=== PATIENT | female | born 1980 | race Caucasian/White ===

== ENCOUNTER 2016-06-18 11:56 | Emergency (ER) | payer MEDICAID ==
--- NOTE | 2016-06-18 12:03 | ER Document Report ---
ED Medical Screen (RME) - General Stated Complaint: SWOLLEN FINGER Time seen by provider: 12:02 Mode of Arrival: Ambulatory Information source: Patient Notes: 36-year-old female presents to ED for swelling and pain in her right index finger. She was painting yesterday and ran her finger over a wall that had metal shards and at she removed some from her from her index finger but is not sure if there is others in her finger still. I have greeted and performed a rapid initial assessment of this patient. A comprehensive ED assessment and evaluation of the patient, analysis of test results and completion of medical decision making process will be conducted by an additional ED providers. TRAVEL OUTSIDE OF THE [place] IN LAST 30 DAYS: No - Related Data Allergies/Adverse Reactions: codeine [Codeine] Allergy (Severe, Verified 10/11/13 17:09) rash Penicillins Allergy (Severe, Verified 10/11/13 17:09) rash Past Medical History - Social History Family history: Arthritis, CAD, CVA, DM, Hypertension - Past Medical History Cardiac Medical History: Reports: Hx Hypertension Skin Medical History: Reports Hx Cellulitis, Reports Hx MRSA Psychiatric Medical History: Reports: Hx Depression Infectious Medical History: Reports: Hx MRSA Past Surgical History: Reports: Hx Section, Hx Tubal Ligation - Immunizations Immunizations up to date: Yes Hx Diphtheria, Pertussis, Tetanus Vaccination: Yes Physical Exam - Vital signs Vitals: Temp Pulse Resp BP Pulse Ox 98.2 F 81 16 138/94 H 98 06/18/16 12:00 06/18/16 12:00 06/18/16 12:00 06/18/16 12:00 06/18/16 12:00 Course - Vital Signs Vital signs: Temp Pulse Resp BP Pulse Ox 98.2 F 81 16 138/94 H 98 06/18/16 12:00 06/18/16 12:00 06/18/16 12:00 06/18/16 12:00 06/18/16 12:00
[2016-06-18] MEDS ORDERED: SULFAMETHOXAZOLE/TRIMETHOPRIM 800-160 MG TABLET PO ONE (12:26)
[2016-06-18] MEDS ORDERED: CEPHALEXIN 500 MG CAPSULE PO ONE (12:28)
--- NOTE | 2016-06-18 12:34 | ER Document Report ---
ED General - General Chief Complaint: Finger Injury Stated Complaint: SWOLLEN FINGER Mode of Arrival: Ambulatory Notes: 28-year-old female here with complaints of pain redness and swelling to the right second finger that started yesterday morning. She states that she was recently renovating a house and ran her hand across the surface that had some metal shavings on it. She is unsure if she has a piece of metal stuck in her finger. She has tried ibuprofen with some minimal relief. She has also tried soaking the finger in Epsom salt water. She denies any nausea vomiting fevers chills. She has a history of MRSA diagnosed 2 years ago. She has not had any drainage from the finger. TRAVEL OUTSIDE OF THE [place] IN LAST 30 DAYS: No - Related Data Allergies/Adverse Reactions: codeine [Codeine] Allergy (Severe, Verified 06/18/16 12:10) rash Penicillins Allergy (Severe, Verified 06/18/16 12:10) rash Past Medical History - General Information source: Patient - Social History Smoking Status: Never Smoker Chew tobacco use (# tins/day): No Frequency of alcohol use: None Drug Abuse: None Family History: CAD, DM, Hypertension, Malignancy Patient has suicidal ideation: No Patient has homicidal ideation: No - Past Medical History Cardiac Medical History: Reports: Hx Hypertension Renal/ Medical History: Denies: Hx Peritoneal Dialysis Skin Medical History: Reports Hx Cellulitis, Reports Hx MRSA Psychiatric Medical History: Reports: Hx Depression Infectious Medical History: Reports: Hx MRSA Past Surgical History: Reports: Hx Section, Hx Tubal Ligation - Immunizations Immunizations up to date: Yes Hx Diphtheria, Pertussis, Tetanus Vaccination: Yes Review of Systems - Review of Systems Notes: See history of present illness for pertinent positive review of systems; otherwise all review of systems have been reviewed and are negative Physical Exam - Vital signs Vitals: Temp Pulse Resp BP Pulse Ox 98.2 F 81 16 138/94 H 98 06/18/16 12:00 06/18/16 12:00 06/18/16 12:00 06/18/16 12:00 06/18/16 12:00 - Notes Notes: PHYSICAL EXAMINATION: GENERAL: Well-appearing and in no acute distress. HEAD: Atraumatic, normocephalic. EYES: Pupils equal round and reactive to light, extraocular movements intact, sclera anicteric, conjunctiva are normal. ENT: nares patent, oropharynx clear without exudates. Moist mucous membranes. NECK: Normal range of motion, supple without lymphadenopathy LUNGS: CTAB and equal. No wheezes rales or rhonchi. HEART: Regular rate and rhythm without murmurs ABDOMEN: Soft, no tenderness. No guarding, no rebound EXTREMITIES: Normal range of motion, no pitting edema. No cyanosis. Right second finger with some mild erythema distally with no significant induration fluctuance drainage visualized or palpated. There is a small 2 mm dark lesion seen at the distal lateral surface of the finger but does not appear to be a foreign body. Neurovascular intact. NEUROLOGICAL: Cranial nerves grossly intact. Normal sensory/motor exams. PSYCH: Normal mood, normal affect. SKIN: Warm, Dry, normal turgor, no rashes or lesions noted Course - Re-evaluation Re-evalutation: 06/18/16 12:33 MEDICAL DECISION MAKING: Concern for cellulitis versus abscess versus foreign body Will obtain x-ray to rule out foreign body Patient does not know of any severe allergy to cephalosporin Per chart review, She had Keflex December 2012 She is agreeable to take Keflex here and we will observe her for any allergies X-rays pending at this time Patient understands and agrees to the plan of care 06/18/16 13:27 Pt has not developed any adverse reactions to Keflex We'll discharge home with Bactrim and Keflex mobic - Vital Signs Vital signs: Temp Pulse Resp BP Pulse Ox 98.2 F 81 16 138/94 H 98 06/18/16 12:00 06/18/16 12:00 06/18/16 12:00 06/18/16 12:00 06/18/16 12:00 Discharge - Discharge Clinical Impression: Cellulitis, finger Qualifiers: Laterality: right Qualified Code(s): L03.011 - Cellulitis of right finger Condition: Good Disposition: HOME, SELF-CARE Additional Instructions: You were seen in the emergency department at [facility]. Please finish the antibiotics and do not skip any doses. You were also prescribed medication for pain to use as needed. Please followup with your primary physician or the orthopedic doctor in the next few days for further management/ evaluation. Please return to the emergency department for worsening of symptoms or any symptom that you deem to be concerning or life-threatening. Thank you for allowing us to be part of your care. Prescriptions: Cephalexin Monohydrate [Keflex 500 mg Capsule] 500 mg PO BID #20 capsule Meloxicam 15 mg PO DAILYP PRN #10 tablet PRN Reason: Sulfamethoxazole/Trimethoprim [Bactrim Ds Tablet] 1 each PO BID #20 tablet Referrals: ANTONY WAGNER MD [ACTIVE STAFF] - Follow up as needed
[2016-06-18 13:35] VITALS: BP 135/90
== END 2016-06-18 13:35 | disposition home or self-care (01) ==
LOC: ER 11:56
DX: L03.011 Cellulitis of right finger (principal); S69.91XA Unspecified injury of right wrist, hand and finger(s), initial encounter; X58.XXXA Exposure to other specified factors, initial encounter
CPT/HCPCS: 99283; 73140; J3490

== ENCOUNTER 2017-07-13 05:49 | Emergency (ER) | payer SELFPAY ==
[2017-07-13] MEDS ORDERED: ONDANSETRON HCL 8 MG TABLET PO ONE (07:06)
[2017-07-13] MEDS ORDERED: KETOROLAC TROMETHAMINE 60 MG/2 ML SDV IM ONE (07:08)
[2017-07-13 07:43] LABS: APPEARANCE,URINE SLIGHTLY-CLOUDY; BILIRUBIN,URINE NEGATIVE (NEGATIVE); COLOR,URINE YELLOW; GLUCOSE, URINE NEGATIVE (NEGATIVE); KETONES,URINE 20 mg/dL (NEGATIVE); LEUKOCYTE ESTERASE,URINE SMALL (NEGATIVE); NITRITE,URINE NEGATIVE (NEGATIVE); PROTEIN,URINE 100 mg/dL (NEGATIVE); URIC ACID CRYSTALS,URINE FEW /HPF; URINE SPECIFIC GRAVITY 1.014
[2017-07-13] MEDS ORDERED: SULFAMETHOXAZOLE/TRIMETHOPRIM 800-160 MG TABLET PO ONE (08:15)
--- NOTE | 2017-07-13 08:18 | ER Document Report ---
ED General - General Chief Complaint: Fever Stated Complaint: SORE THROAT Time Seen by Provider: 07/13/17 06:56 TRAVEL OUTSIDE OF THE [place] IN LAST 30 DAYS: No - HPI Patient complains to provider of: Fever sore throat urinary symptoms Notes: Patient coming in for the above-stated symptoms ongoing for the last 24 hours. Patient also states some slight nausea vomiting. Denies any sick contacts denies any recent antibiotics. Patient resting company upon my evaluation. - Related Data Allergies/Adverse Reactions: codeine [Codeine] Allergy (Severe, Verified 07/13/17 07:25) rash Penicillins Allergy (Severe, Verified 07/13/17 07:25) rash Past Medical History - Social History Smoking Status: Current Some Day Smoker Chew tobacco use (# tins/day): No Frequency of alcohol use: Occasional Drug Abuse: None Family History: CAD, DM, Hypertension, Malignancy Patient has suicidal ideation: No Patient has homicidal ideation: No - Past Medical History Cardiac Medical History: Reports: Hx Hypertension Renal/ Medical History: Denies: Hx Peritoneal Dialysis Skin Medical History: Reports Hx Cellulitis, Reports Hx MRSA Psychiatric Medical History: Reports: Hx Depression Infectious Medical History: Reports: Hx MRSA Past Surgical History: Reports: Hx Section, Hx Tubal Ligation - Immunizations Immunizations up to date: Yes Hx Diphtheria, Pertussis, Tetanus Vaccination: Yes Review of Systems - Review of Systems Constitutional: Fever EENT: Throat pain Cardiovascular: No symptoms reported Respiratory: No symptoms reported Gastrointestinal: No symptoms reported Genitourinary: Dysuria Female Genitourinary: No symptoms reported Musculoskeletal: No symptoms reported Skin: No symptoms reported Hematologic/Lymphatic: No symptoms reported Neurological/Psychological: No symptoms reported -: Yes All other systems reviewed and negative Physical Exam - Vital signs Vitals: Temp Pulse Resp BP Pulse Ox 100.7 F H 92 19 136/74 H 99 07/13/17 05:50 07/13/17 05:50 07/13/17 05:50 07/13/17 05:50 07/13/17 05:50 Interpretation: Normal - General General appearance: Appears well, Alert - HEENT Head: Normocephalic, Atraumatic Eyes: Normal Conjunctiva: Normal Cornea: Normal Extraocular movements intact: Yes Eyelashes: Normal Pupils: PERRL Ears: Normal External canal: Normal Tympanic membrane: Normal Sinus: Normal Nasal: Normal Pharynx: Normal Neck: Normal - Respiratory Respiratory status: No respiratory distress Chest status: Nontender Breath sounds: Normal Chest palpation: Normal - Cardiovascular Rhythm: Regular Heart sounds: Normal auscultation Murmur: No - Abdominal Inspection: Normal Distension: No distension Bowel sounds: Normal Tenderness: Nontender Organomegaly: No organomegaly - Back Back: Normal, Nontender - Extremities General upper extremity: Normal inspection, Nontender, Normal color, Normal ROM , Normal temperature General lower extremity: Normal inspection, Nontender, Normal color, Normal ROM , Normal temperature, Normal weight bearing. No: Yara's sign - Neurological Neuro grossly intact: Yes Cognition: Normal Orientation: AAOx4 [place] Coma Scale Eye Opening: Spontaneous [place] Coma Scale Verbal: Oriented [place] Coma Scale Motor: Obeys Commands Sara Coma Scale Total: 15 Speech: Normal Motor strength normal: LUE, RUE, LLE, RLE Sensory: Normal - Psychological Associated symptoms: Normal affect, Normal mood - Skin Skin Temperature: Warm Skin Moisture: Dry Skin Color: Normal Course - Re-evaluation Re-evalutation: 07/14/17 12:18 Laboratory studies show signs of urinary tract infection. Will give medication history infection nausea medication patient is to follow-up with primary care physician. - Vital Signs Vital signs: Temp Pulse Resp BP Pulse Ox 100.7 F H 92 20 124/69 96 07/13/17 05:50 07/13/17 08:45 07/13/17 08:45 07/13/17 08:45 07/13/17 08:45 - Laboratory Laboratory results interpreted by me: 07/13/17 07:02 Urine Protein 100 H Urine Ketones 20 H Urine Blood LARGE H Urine Urobilinogen 2.0 H Ur Leukocyte Esterase SMALL H Discharge - Discharge Clinical Impression: UTI (urinary tract infection) Qualifiers: Urinary tract infection type: site unspecified Hematuria presence: without hematuria Qualified Code(s): N39.0 - Urinary tract infection, site not specified Nausea & vomiting Qualifiers: Vomiting type: unspecified Vomiting Intractability: unspecified Qualified Code( s): R11.2 - Nausea with vomiting, unspecified Condition: Good Disposition: HOME, SELF-CARE Instructions: Trimethoprim-Sulfa ([facility]), Urinary Tract Infection ([facility]) Additional Instructions: Follow-up with your primary care physician. Your laboratory studies today do show signs of urinary tract infection. Please take medication as prescribed. Please take nausea medication as prescribed as well. Prescriptions: Ondansetron [Zofran Odt 4 mg Tablet] 4 mg PO Q4HP PRN #30 tab.rapdis PRN Reason: Promethazine HCl [Phenergan 25 mg Tablet] 25 mg PO Q6 #30 tablet Sulfamethoxazole/Trimethoprim [Bactrim Ds Tablet] 1 each PO BID #14 tablet Referrals: JAYNE RUBIO PA-C [Primary Care Provider] - Follow up in 3-5 days
[2017-07-13 08:55] VITALS: BP 124/69
== END 2017-07-13 08:45 | disposition home or self-care (01) ==
LOC: ER 05:49
DX: N39.0 Urinary tract infection, site not specified (principal); J02.9 Acute pharyngitis, unspecified; R50.9 Fever, unspecified; R11.2 Nausea with vomiting, unspecified; I10 Essential (primary) hypertension; F17.200 Nicotine dependence, unspecified, uncomplicated; Z88.5 Allergy status to narcotic agent; Z88.0 Allergy status to penicillin; Z86.14 Personal history of Methicillin resistant Staphylococcus aureus infection
CPT/HCPCS: 99283; 96372; 87086; 81025; 87088; 81001; 87186; J1885; S0119

== ENCOUNTER 2017-11-05 19:12 | Emergency (ER) | payer SELFPAY ==
[2017-11-05] MEDS ORDERED: CLINDAMYCIN HCL 150 MG CAPSULE PO ONE (20:10)
[2017-11-05] MEDS ORDERED: LIDOCAINE 2% VISCOUS SOLN 20 ML UDCUP PO ONE (20:10)
[2017-11-05] MEDS ORDERED: IBUPROFEN 600 MG TABLET PO ONE (20:10)
--- NOTE | 2017-11-05 20:18 | ER Document Report ---
ED Oral Problem - General Chief Complaint: Toothache Stated Complaint: TOOTHACHE Time Seen by Provider: 11/05/17 19:59 Mode of Arrival: Ambulatory Information source: Patient Notes: 37-year-old female presents to ED for complaint of dental pain 5 days. She states she took Tylenol at home with some relief and aspirin in the morning. She states she has not had anything this afternoon except for Tylenol. She states she tried to call a dentist and was not able to get in this week. She is alert and oriented speaking in full sentences respirations regular and nonlabored and walks with a even steady gait. TRAVEL OUTSIDE OF THE [place] IN LAST 30 DAYS: No - HPI Patient complains to provider of: Toothache Onset: Other - 5 days Onset: Gradual Quality of pain: Sharp, Throbbing Severity: Severe Pain Level: 5 Associated symptoms: Toothache Worsened by: Cold Relieved by: Nothing Similar symptoms previously: Yes Recently seen / treated by doctor/dentist: No - Related Data Allergies/Adverse Reactions: codeine [Codeine] Allergy (Severe, Verified 07/13/17 07:25) rash Penicillins Allergy (Severe, Verified 07/13/17 07:25) rash Past Medical History - General Information source: Patient - Social History Smoking Status: Current Every Day Smoker Cigarette use (# per day): Yes - Pack per day Chew tobacco use (# tins/day): No Smoking Education Provided: Yes - 4 minutes Frequency of alcohol use: Rare Drug Abuse: None Occupation: [employer] Lives with: Spouse/Significant other Family History: CAD, DM, Hypertension, Malignancy. denies: Arthritis, COPD, CVA , Hyperlipidemia, Thyroid Disfunction Patient has suicidal ideation: No Patient has homicidal ideation: No - Past Medical History Cardiac Medical History: Reports: Hx Hypertension Pulmonary Medical History: Reports: None EENT Medical History: Reports: None Neurological Medical History: Reports: None Endocrine Medical History: Reports: None Renal/ Medical History: Reports: None Malignancy Medical History: Reports: Hx Skin Cancer GI Medical History: Reports: None Musculoskeltal Medical History: Reports None Skin Medical History: Reports Hx Cellulitis, Reports Hx MRSA Psychiatric Medical History: Reports: Hx Depression Traumatic Medical History: Reports: None Infectious Medical History: Reports: Hx MRSA Past Surgical History: Reports: Hx Section, Hx Tubal Ligation - Immunizations Immunizations up to date: Yes Hx Diphtheria, Pertussis, Tetanus Vaccination: Yes Review of Systems - Review of Systems Constitutional: No symptoms reported EENT: Dental problem Cardiovascular: No symptoms reported Respiratory: No symptoms reported Gastrointestinal: No symptoms reported Genitourinary: No symptoms reported Female Genitourinary: No symptoms reported Musculoskeletal: No symptoms reported Skin: No symptoms reported Hematologic/Lymphatic: No symptoms reported Neurological/Psychological: No symptoms reported -: Yes All other systems reviewed and negative Physical Exam - Vital signs Vitals: Temp Pulse Resp BP Pulse Ox 98.5 F 52 L 20 149/87 H 98 11/05/17 19:27 11/05/17 19:27 11/05/17 19:27 11/05/17 19:27 11/05/17 19:27 Interpretation: Normal - General General appearance: Appears well, Alert - HEENT Head: Normocephalic, Atraumatic Eyes: Normal Pupils: PERRL Ears: Normal External canal: Normal Tympanic membrane: Normal Sinus: Tenderness Nasal: Purulent discharge, Swelling Mouth/Lips: Caries Mucous membranes: Normal Teeth diagram: 1 - Tooth #31 very tender to touch redness behind the tooth tooth #32 was surgically removed previously Pharynx: Post nasal drainage Neck: Anterior cervical chain - Respiratory Respiratory status: No respiratory distress Chest status: Nontender Breath sounds: Nonproductive cough Chest palpation: Normal - Cardiovascular Rhythm: Regular Heart sounds: Normal auscultation Murmur: No - Abdominal Inspection: Normal Distension: No distension Bowel sounds: Normal Tenderness: Nontender Organomegaly: No organomegaly - Back Back: Normal, Nontender - Extremities General upper extremity: Normal inspection, Nontender, Normal color, Normal ROM , Normal temperature General lower extremity: Normal inspection, Nontender, Normal color, Normal ROM , Normal temperature, Normal weight bearing. No: Yara's sign - Neurological Neuro grossly intact: Yes Cognition: Normal Orientation: AAOx4 [place] Coma Scale Eye Opening: Spontaneous [place] Coma Scale Verbal: Oriented [place] Coma Scale Motor: Obeys Commands Sara Coma Scale Total: 15 Speech: Normal Motor strength normal: LUE, RUE, LLE, RLE Sensory: Normal - Psychological Associated symptoms: Normal affect, Normal mood - Skin Skin Temperature: Warm Skin Moisture: Dry Skin Color: Normal Course - Re-evaluation Re-evalutation: 11/05/17 20:20 Patient was treated with clindamycin ibuprofen and viscous lidocaine for her dental pain to tooth #31. She also has swollen nasal turbinates with purulent nasal drainage and postnasal drip.. Patient was instructed to please follow-up with her primary doctor on Wednesday concerning her sometimes low blood pressure sometimes high blood pressure and the fact that she sometimes does not take her lisinopril. Patient is instructed to take her blood pressure twice a day between and Wednesday to take these with her to her doctor. She was also instructed anytime she had her dizzy spells the please take her blood pressure and record that also. After performing a Medical Screening Examination, I estimate there is LOW risk for a DEEP SPACE INFECTION (e.g., CHERYL'S ANGINA OR RETROPHARYNGEAL ABSCESS), MENINGITIS, INTRACRANIAL HEMORRHAGE, or AIRWAY COMPROMISE, thus I consider the discharge disposition reasonable. Also, there is no evidence or peritonitis, sepsis, or toxicity. I have reevaluated this patient multiple times and no significant life threatening changes are noted. The patient and I have discussed the diagnosis and risks, and we agree with discharging home with close follow-up with the understanding that symptoms and presentations can change. We also discussed returning to the Emergency Department immediately if new or worsening symptoms occur. We have discussed the symptoms which are most concerning (e.g., changing or worsening pain, trouble swallowing or breathing, neck stiffness or fever) that necessitate immediate return. - Vital Signs Vital signs: Temp Pulse Resp BP Pulse Ox 97.9 F 55 L 18 149/83 H 99 11/05/17 20:33 11/05/17 20:33 11/05/17 20:33 11/05/17 20:33 11/05/17 20:33 Discharge - Discharge Clinical Impression: Pain due to dental caries HTN (hypertension) Qualifiers: Hypertension type: unspecified Qualified Code(s): I10 - Essential (primary) hypertension Condition: Stable Disposition: HOME, SELF-CARE Additional Instructions: TOOTHACHE: Your pain is due to dental decay. The tooth must be repaired in order for you to feel better. You will, therefore, be referred to a dentist. We do not have dentists on the staff at [facility]. Severe swelling or drainage around a tooth usually means a dental abscess. This also requires evaluation and treatment by the dentist, but antibiotics may be prescribed while awaiting dental treatment. You should be rechecked immediately if you develop major swelling of the face, increasing pain, a lump in the jaw or gums, headache, difficulty swallowing, or fever. CLINDAMYCIN: You have been given a prescription for the antibiotic clindamycin. It is often prescribed for infections in the mouth, such as dental infections or abscesses, and for skin infections due to MRSA. It's important that you take all the medication, unless instructed otherwise by your physician. Failure to complete the entire course can result in relapse of your condition. Common side effects of antibiotics include nausea, intestinal cramping, or diarrhea. Women may develop vaginal yeast infections, and babies can get yeast (thrush) in the mouth following the use of antibiotics. Contact your physician if you develop significant side effects from this medication. Allergy to this antibiotic can result in hives, wheezing, faintness, or itching. If symptoms of allergy occur, stop the medication and call the doctor. FOLLOW-UP CARE: You have been referred for follow-up care to the dentists listed below. Call the dentists office for an appointment as you were instructed or within the next two days. If you experience worsening or a significant change in your symptoms, notify the physician immediately or return to the Emergency Department at any time for re-evaluation. [facility] [address] [place], [place] [facility] [address] [place] [address] [facility] [address] [facility] [address] [facility] [address] [facility]. [email or web address] [address] [place] [address] Wednesday- 8:00am to 5:00 pm Will see patients from other [facility]. Charges based on income and family size and accepts Medicare, Medicaid, and Insurances Will pull molars [facility], [facility]. [address] Hours of Operation 8:00 am - 4:30 pm weekdays The following dental offices accept Medicaid: [facility] Dr. Fernandez Dr. Chang Dr. Delacruz Dr. Lee Elmer Gillis Lutsavage, and [facility] Dr. Vsaquez ([place]) Dr. Rizzo ([place]) [facility] Drs. Jean ([place]) Dr. Butts ([place]) [facility] Dr. Perez ([place]) Drs. Bella and ([place]) Medicaid Care Line Prescriptions: Clindamycin HCl 300 mg PO Q6 #28 capsule Forms: Elevated Blood Pressure, Smoking Cessation Education, Return to Work Referrals: JAYNE RUBIO PA-C [Primary Care Provider] - Follow up as needed
[2017-11-05 20:34] VITALS: BP 149/83
== END 2017-11-05 20:34 | disposition home or self-care (01) ==
LOC: ER 19:12
DX: K02.9 Dental caries, unspecified (principal); I10 Essential (primary) hypertension; F17.210 Nicotine dependence, cigarettes, uncomplicated; Z88.0 Allergy status to penicillin; Z88.6 Allergy status to analgesic agent; Z86.14 Personal history of Methicillin resistant Staphylococcus aureus infection; Z98.51 Tubal ligation status
CPT/HCPCS: 99406; 99282; J3490

== ENCOUNTER 2018-06-16 17:19 | Observation (INO) | payer SELFPAY ==
--- NOTE | 2018-06-16 18:55 | RADIOLOGY REPORT (SQ) ---
EXAM DESCRIPTION: CHEST 2 VIEWS COMPLETED DATE/TIME: 06/16/2018 6:46 pm REASON FOR STUDY: chest pain COMPARISON: 05/20/2016 EXAM PARAMETERS: NUMBER OF VIEWS: two views TECHNIQUE: Digital Frontal and Lateral radiographic views of the chest acquired. RADIATION DOSE: NA LIMITATIONS: none FINDINGS: LUNGS AND PLEURA: No opacities, masses or pneumothorax. No pleural effusion. MEDIASTINUM AND HILAR STRUCTURES: No masses or contour abnormalities. HEART AND VASCULAR STRUCTURES: Heart normal size. No evidence for failure. BONES: No acute findings. HARDWARE: None in the chest. OTHER: No other significant finding. IMPRESSION: NO ACUTE RADIOGRAPHIC FINDING IN THE CHEST. TECHNICAL DOCUMENTATION: JOB ID: [id number] [employer]- All Rights Reserved Reading location - IP/workstation name: [email or web address]
--- NOTE | 2018-06-16 18:57 | ER Document Report ---
ED Medical Screen (RME) - General Chief Complaint: Chest Pain Stated Complaint: LEFT ARM PAIN, CHEST PAIN,HEADACHE Time Seen by Provider: 06/16/18 18:18 Mode of Arrival: Ambulatory Information source: Patient TRAVEL OUTSIDE OF THE [place] IN LAST 30 DAYS: No - HPI Notes: 06/16/18 18:39 2-year-old female presents to the ED with complaints of having elevated blood pressure approximately 210/100 manually while at her house approximately 7 hours ago, states she had a headache was diaphoretic with squeezing chest pain that lasted for less than 30 minutes and went away. Patient does have a history of hypertension, takes lisinopril daily, no history of prior heart issues. Mother had a heart attack at age 33 father at age 38. Denies any numbness or tingling down her arms or X. Has not had an episode of this diaphoretic chest pain with headache and elevated blood pressure. Patient was urged by mother to come to ER for further evaluation. Denies fevers, chills, palpitations, shortness of breath, dyspnea, nausea, vomiting, diarrhea, abdominal pain, hematuria,blurred vision, double vision, loss of vision, speech changes, LH, dizziness, syncope, headaches, wheezing, ST, URI, neck pain, weakness in bilateral upper or lower extremities equally, muscle paralysis, weakness in bilateral upper or lower extremities equally or rash. I have greeted and performed a rapid initial assessment of this patient. A comprehensive ED assessment and evaluation of the patient, analysis of test results and completion of medical decision making process will be conducted by an additional ED providers. - Related Data Allergies/Adverse Reactions: codeine [Codeine] Allergy (Severe, Verified 06/16/18 17:21) rash Penicillins Allergy (Severe, Verified 06/16/18 17:21) rash Past Medical History - General Information source: Patient - Social History Chew tobacco use (# tins/day): No Frequency of alcohol use: None Drug Abuse: None Family history: Arthritis, CAD, CVA, DM, Hypertension - Past Medical History Cardiac Medical History: Reports: Hx Hypertension Renal/ Medical History: Denies: Hx Peritoneal Dialysis Malignancy Medical History: Reports: Hx Skin Cancer Skin Medical History: Reports Hx Cellulitis, Reports Hx MRSA Psychiatric Medical History: Reports: Hx Depression Infectious Medical History: Reports: Hx MRSA Past Surgical History: Reports: Hx Section, Hx Tubal Ligation - Immunizations Immunizations up to date: Yes Hx Diphtheria, Pertussis, Tetanus Vaccination: Yes Review of Systems - Review of Systems Constitutional: No symptoms reported EENT: No symptoms reported Cardiovascular: No symptoms reported Respiratory: No symptoms reported Gastrointestinal: No symptoms reported Genitourinary: No symptoms reported Female Genitourinary: No symptoms reported Musculoskeletal: No symptoms reported Skin: No symptoms reported Hematologic/Lymphatic: No symptoms reported Neurological/Psychological: No symptoms reported Physical Exam - Vital signs Vitals: Temp Pulse Resp BP Pulse Ox 98.6 F 60 16 135/88 H 98 06/16/18 17:43 06/16/18 17:43 06/16/18 17:43 06/16/18 17:43 06/16/18 17:43 - Respiratory Respiratory status: No respiratory distress Chest status: Nontender Breath sounds: Normal Chest palpation: Normal - Cardiovascular Rhythm: Regular Murmur: No Normal capillary refill: Yes Course - Vital Signs Vital signs: Temp Pulse Resp BP Pulse Ox 98.6 F 60 16 135/88 H 98 06/16/18 17:43 06/16/18 17:43 06/16/18 17:43 06/16/18 17:43 06/16/18 17:43 Doctor's Discharge - Discharge Referrals: JAYNE RUBIO PA-C [Primary Care Provider] - Follow up as needed
[2018-06-16 19:25] LABS: ABSOLUTE BASOPHILS # (AUTO) 0.1 10^3/uL (0.0-0.2); ABSOLUTE EOSINOPHILS # (AUTO) 0.3 10^3/uL (0.0-0.6); ABSOLUTE LYMPHOCYTES (AUTO) 3.6 10^3/uL (0.5-4.7); ABSOLUTE NEUT (AUTO) 6.3 10^3/uL (1.7-8.2); BASOPHILS % (AUTO) 0.8 % (0-2); EOSINOPHILS % (AUTO) 2.5 % (0-6); HEMATOCRIT 40.4 % (36.0-47.0); HEMOGLOBIN 13.7 g/dL (12.0-15.5); LYMPHOCYTES % (AUTO) 32.1 % (13-45); MEAN CORPUSCULAR HEMOGLOBIN 31.8 pg (27.0-33.4); MEAN CORPUSCULAR HGB CONC 33.9 g/dL (32.0-36.0); MEAN CORPUSCULAR VOLUME 94 fl (80-97); PLATELET COUNT 289 10^3/uL (150-450); RED CELL DISTRIBUTION WIDTH 14.5 % (11.5-14.0); SEGMENTED NEUTROPHILS % (AUTO) 55.6 % (42-78); TOTAL CELLS COUNTED % (AUTO) 100 %; WHITE BLOOD COUNT 11.3 10^3/uL (4.0-10.5)
[2018-06-16 19:51] LABS: ALANINE AMINOTRANSFERASE 25 U/L (9-52); ALBUMIN 4.6 g/dL (3.5-5.0); ALKALINE PHOSPHATASE 73 U/L (38-126); ANION GAP 7 (5-19); ASPARTATE AMINO TRANSFERASE 31 U/L (14-36); BILIRUBIN,DIRECT 0.2 mg/dL (0.0-0.4); BILIRUBIN,TOTAL 0.5 mg/dL (0.2-1.3); BLOOD UREA NITROGEN 14 mg/dL (7-20); CALCIUM 9.4 mg/dL (8.4-10.2); CARBON DIOXIDE 30 mmol/L (22-30); CHLORIDE 105 mmol/L (98-107); CREATINE KINASE 147 U/L (30-135); GLUCOSE 104 mg/dL (75-110); POTASSIUM 4.1 mmol/L (3.6-5.0); SODIUM 141.5 mmol/L (137-145); TOTAL PROTEIN 7.7 g/dL (6.3-8.2)
[2018-06-16 19:54] LABS: CREATINE KINASE MB 1.66 ng/mL (<4.55)
[2018-06-16 19:58] LABS: TROPONIN I < 0.012 ng/mL
[2018-06-16] MEDS ORDERED: ATORVASTATIN CALCIUM 80 MG TABLET PO SCH (22:00)
--- NOTE | 2018-06-16 22:44 | ER Document Report ---
ED General <FRANCO KENYON - Last Filed: 06/16/18 23:18> - General Mode of Arrival: Ambulatory Information source: Patient TRAVEL OUTSIDE OF THE [place] IN LAST 30 DAYS: No <DELMA,WILLIAM - Last Filed: 06/17/18 02:06> - General Chief Complaint: Chest Pain Stated Complaint: LEFT ARM PAIN, CHEST PAIN,HEADACHE Time Seen by Provider: 06/16/18 18:18 Notes: Patient also stated that she has not been compliant with her blood pressure medication due to losing her insurance. She was not aware that the medication cost less per month than what she spends on cigarettes on a daily basis. (FRANCO KENYON) Patient is a 38-year-old female with hypertension and a history of basal cell skin cancer as well as an extensive family history of OK and stroke presents to the emergency department complaining of chest pain. Patient states that she woke up this morning around 7 AM with a headache. She states around 11 AM she developed chest pain which is described as "something sitting on my chest" which lasted approximately 20 minutes. She also states that her right arm began to ache and she felt generally unwell further stating she became nauseous and diaphoretic. She states that she took her blood pressure shortly after which was found to be 210 systolic and proceeded to take a dose of Lisinopril (10mg). She states that she frequently checked her blood pressure throughout the day and noticed that it was inconsistent further stating it would range from very elevated to normal. Patient states she does not take her hypertension medicine daily as prescribed due to it giving her a dry cough. She further states the last time she has taken her Lisinopril medication was approximately 2 weeks ago. Patient states she has basal skin cell cancer and has had some cells removed. (WILLIAM NGUYỄN) - Related Data Allergies/Adverse Reactions: codeine [Codeine] Allergy (Severe, Verified 06/16/18 17:21) rash Penicillins Allergy (Severe, Verified 06/16/18 17:21) rash Past Medical History - General Information source: Patient - Social History Smoking Status: Current Every Day Smoker Cigarette use (# per day): Yes - 1 PPD Chew tobacco use (# tins/day): No Frequency of alcohol use: None Drug Abuse: None Family History: CAD - Mother had first OK at the age of 37., DM, Hypertension, Malignancy - Mother has melanoma., Other - Mother had a stroke at the age of 32. Patient has suicidal ideation: No Patient has homicidal ideation: No - Past Medical History Cardiac Medical History: Reports: Hx Hypertension Malignancy Medical History: Reports: Hx Skin Cancer Skin Medical History: Reports Hx Cellulitis, Reports Hx MRSA Psychiatric Medical History: Reports: Hx Depression Infectious Medical History: Reports: Hx MRSA Past Surgical History: Reports: Hx Section, Hx Tubal Ligation - Immunizations Immunizations up to date: Yes Hx Diphtheria, Pertussis, Tetanus Vaccination: Yes <DELMAWILLIAM ANDERSON - Last Filed: 06/17/18 02:06> Review of Systems - Review of Systems Constitutional: See HPI, Diaphoresis EENT: No symptoms reported Cardiovascular: See HPI, Chest pain Respiratory: No symptoms reported Gastrointestinal: See HPI, Nausea Genitourinary: No symptoms reported Female Genitourinary: No symptoms reported Musculoskeletal: See HPI Skin: No symptoms reported Hematologic/Lymphatic: No symptoms reported Neurological/Psychological: No symptoms reported -: Yes All other systems reviewed and negative <DELMA,OBEDJAQUELIN - Last Filed: 06/17/18 02:06> Physical Exam <DELMAWILLIAM ANDERSON - Last Filed: 06/17/18 02:06> - Vital signs Vitals: Temp Pulse Resp BP Pulse Ox 98.6 F 60 16 135/88 H 98 06/16/18 17:43 06/16/18 17:43 06/16/18 17:43 06/16/18 17:43 06/16/18 17:43 - Notes Notes: GENERAL: Alert, interacts well. No acute distress. HEAD: Normocephalic, atraumatic. EYES: Pupils equal, round, and reactive to light. Extraocular movements intact. ENT: Oral mucosa moist, tongue midline. NECK: Full range of motion. Supple. Trachea midline. LUNGS: Rhonchi and wheezes. No respiratory distress. Left anterior chest wall tender to palpation. HEART: Regular rate and rhythm. No murmurs, gallops, or rubs. ABDOMEN: Soft, obese, non-tender. Non-distended. Bowel sounds present in all 4 quadrants. EXTREMITIES: Moves all 4 extremities spontaneously. NEUROLOGICAL: Alert and oriented x3. Normal speech. PSYCH: Normal affect, normal mood. SKIN: Warm, dry, normal turgor. No rashes or lesions noted. (WILLIAM NGUYỄN) Course - Laboratory Result Diagrams: 06/16/18 19:00 06/16/18 19:00 - Diagnostic Test Radiology reviewed: Image reviewed, Reports reviewed - Chest x-ray is unremarkable - EKG Interpretation by Me EKG shows normal: Sinus rhythm, [place], Intervals, QRS Complexes, ST-T Waves Rate: Normal - 58 Rhythm: NSR Voltage: Consistant with LVH When compared to previous EKG there are: Changes noted - Consults Dr. Dunne Time consulted: 23:10 Consulted provider: will come to ER <FRANCO KENYON - Last Filed: 06/16/18 23:18> - Laboratory Result Diagrams: 06/16/18 19:00 06/16/18 19:00 <WILLIAM NGUYỄN - Last Filed: 06/17/18 02:06> - Vital Signs Vital signs: Temp Pulse Resp BP Pulse Ox 97.8 F 59 L 18 124/81 99 06/17/18 01:08 06/17/18 01:08 06/17/18 01:08 06/17/18 01:08 06/17/18 01:08 - Laboratory Laboratory results interpreted by me: 06/16/18 06/16/18 19:00 19:00 WBC 11.3 H RDW 14.5 H Creatine Kinase 147 H Discharge - Discharge Admitting Provider: Hospitalist Unit Admitted: Telemetry <FRANCO KENYON - Last Filed: 06/16/18 23:18> <WILLIAM NGUYỄN - Last Filed: 06/17/18 02:06> - Discharge Clinical Impression: Noncompliance with medication regimen Chest pain Qualifiers: Chest pain type: unspecified Qualified Code(s): R07.9 - Chest pain, unspecified High blood pressure Qualifiers: Hypertension type: essential hypertension Qualified Code(s): I10 - Essential (primary) hypertension Condition: Stable Disposition: ADMITTED OBSERVATION Scribe Attestation: 06/16/18 23:16 I personally performed the services described in the documentation, reviewed and edited the documentation which was dictated to the scribe in my presence, and it accurately records my words and actions. (FRANCO KENYON) Scribe Documentation - Scribe Written by Scribe:: Rachel Markham, 06/16/2018 22:50 acting as scribe for :: Romain <WILLIAM NGUYỄN - Last Filed: 06/17/18 02:06>
--- NOTE | 2018-06-16 23:09 | EKG REPORT ---
SEVERITY:- ABNORMAL ECG - SINUS RHYTHM CONSIDER LEFT VENTRICULAR HYPERTROPHY : Confirmed by: Kai West 16-Jun-2018 23:09:00
[2018-06-16] MEDS ORDERED: NITROGLYCERIN 0.4 MG/TAB 25 TAB/BOTTLE SL PRN (23:18)
[2018-06-16] MEDS ORDERED: MAG HYDROX/AL HYDROX/SIMETH SUSP 30 ML UDCUP PO PRN (23:18)
[2018-06-16] MEDS ORDERED: HYDRALAZINE HCL INJ/PF 20 MG/1 ML SDV IV PRN (23:20)
[2018-06-16] MEDS ORDERED: ATORVASTATIN CALCIUM 80 MG TABLET PO ONE (23:45)
[2018-06-17] MEDS: ACETAMINOPHEN 325 MG TABLET PO PRN ×2 (00:54→08:06)
[2018-06-17 05:11] LABS: CHOLESTEROL 174.75 mg/dL (0-200); CREATINE KINASE 117 U/L (30-135); TRIGLYCERIDES 131 mg/dL (<150)
[2018-06-17 05:21] LABS: CREATINE KINASE MB 1.14 ng/mL (<4.55)
[2018-06-17 05:22] LABS: DIRECT LDL 98 mg/dL (<100)
[2018-06-17 05:34] LABS: TROPONIN I < 0.012 ng/mL
--- NOTE | 2018-06-17 07:31 | PDOC H&P ---
History of Present Illness Admission Date/PCP: 06/16/18 23:27 JAYNE RUBIO PA-C Patient complains of: Chest pain History of Present Illness: DONNA PICKARD is a 38 year old female with a past medical history of hypertension, tobacco, GERD and depression. Patient presents 6 hours after an onset of left-sided retrosternal chest pain with radiation to the neck and shoulder occurring at rest pain was 4 out of 5 intensity dull in nature associated with shortness of breath, nausea, diaphoresis and palpitations. Pain resolved spontaneously without intervention. She is unable to identify alleviating or exacerbating factors. In the emergency room she has an u nremarkable workup and referred to the hospitalist for observation. Patient admits missing several doses of antihypertensive medication, and to frequent use of energy drinks. Past Medical History Cardiac Medical History: Reports: Hypertension Malignancy Medical History: Reports: Skin Cancer Psychiatric Medical History: Reports: Depression, Tobacco Dependency Infectious Medical History: Reports: Methicillin-Resistant Staph Aureus Past Surgical History Past Surgical History: Reports: Section, Tubal Ligation Social History Information Source: Patient Smoking Status: Current Every Day Smoker Frequency of Alcohol Use: None Drugs: None Family History Family History: CAD - Mother had first HI at the age of 37., DM, Hypertension, Malignancy - Mother has melanoma., Other - Mother had a stroke at the age of 32. Parental Family History Reviewed: Yes Children Family History Reviewed: Yes Sibling(s) Family History Reviewed.: Yes Medication/Allergy Allergies/Adverse Reactions: codeine [Codeine] Allergy (Severe, Verified 06/16/18 17:21) rash Penicillins Allergy (Severe, Verified 06/16/18 17:21) rash Review of Systems Constitutional: ABSENT: chills, fever(s), headache(s), weight gain, weight loss Eyes: ABSENT: visual disturbances Ears: ABSENT: hearing changes Cardiovascular: ABSENT: chest pain, dyspnea on exertion, edema, orthropnea, pa lpitations Respiratory: ABSENT: cough, hemoptysis Gastrointestinal: ABSENT: abdominal pain, constipation, diarrhea, hematemesis, hematochezia, nausea, vomiting Genitourinary: ABSENT: dysuria, hematuria Musculoskeletal: ABSENT: joint swelling Integumentary: ABSENT: rash, wounds Neurological: ABSENT: abnormal gait, abnormal speech, confusion, dizziness, focal weakness, syncope Psychiatric: ABSENT: anxiety, depression, homidical ideation, suicidal ideation Endocrine: ABSENT: cold intolerance, heat intolerance, polydipsia, polyuria Hematologic/Lymphatic: ABSENT: easy bleeding, easy bruising Physical Exam Vital Signs: Temp Pulse Resp BP Pulse Ox 97.8 F 60 18 124/81 99 06/17/18 01:08 06/17/18 07:00 06/17/18 01:08 06/17/18 01:08 06/17/18 01:08 Intake & Output 06/15/18 06/16/18 06/17/18 11:59 11:59 11:59 Weight 83.7 kg General appearance: PRESENT: no acute distress, well-developed, well-nourished Head exam: PRESENT: atraumatic, normocephalic Eye exam: PRESENT: conjunctiva pink, EOMI, PERRLA. ABSENT: scleral icterus Ear exam: PRESENT: normal external ear exam Mouth exam: PRESENT: moist, tongue midline Neck exam: ABSENT: carotid bruit, JVD, lymphadenopathy, thyromegaly Respiratory exam: PRESENT: clear to auscultation zev. ABSENT: rales, rhonchi, wheezes Cardiovascular exam: PRESENT: RRR. ABSENT: diastolic murmur, rubs, systolic murmur Pulses: PRESENT: normal dorsalis pedis pul Vascular exam: PRESENT: normal capillary refill GI/Abdominal exam: PRESENT: normal bowel sounds, soft. ABSENT: distended, guarding, mass, organolmegaly, rebound, tenderness Rectal exam: PRESENT: deferred Extremities exam: PRESENT: full ROM. ABSENT: calf tenderness, clubbing, pedal edema Neurological exam: PRESENT: alert, awake, oriented to person, oriented to place, oriented to time, oriented to situation, CN II-XII grossly intact. ABSENT: motor sensory deficit Psychiatric exam: PRESENT: appropriate affect, normal mood. ABSENT: homicidal ideation, suicidal ideation Skin exam: PRESENT: dry, intact, warm. ABSENT: cyanosis, rash Results Laboratory Results: 06/16/18 19:00 06/16/18 19:00 06/16/18 06/16/18 06/17/18 19:00 19:00 04:45 WBC 11.3 H RBC 4.30 Hgb 13.7 Hct 40.4 MCV 94 MCH 31.8 MCHC 33.9 RDW 14.5 H Plt Count 289 Seg Neutrophils % 55.6 Lymphocytes % 32.1 Monocytes % 9.0 Eosinophils % 2.5 Basophils % 0.8 Absolute Neutrophils 6.3 Absolute Lymphocytes 3.6 Absolute Monocytes 1.0 Absolute Eosinophils 0.3 Absolute Basophils 0.1 Sodium 141.5 Potassium 4.1 Chloride 105 Carbon Dioxide 30 Anion Gap 7 BUN 14 Creatinine 0.68 Est GFR ( Amer) > 60 Est GFR (Non-Af Amer) > 60 Glucose 104 Calcium 9.4 Total Bilirubin 0.5 AST 31 ALT 25 Alkaline Phosphatase 73 Total Protein 7.7 Albumin 4.6 Triglycerides 131 Cholesterol 174.75 LDL Cholesterol Direct 98 VLDL Cholesterol 26.0 HDL Cholesterol 43 06/16/18 06/16/18 06/16/18 19:00 19:00 22:50 Creatine Kinase 147 H CK-MB (CK-2) 1.66 Troponin I < 0.012 < 0.012 06/17/18 06/17/18 04:45 04:45 Creatine Kinase 117 CK-MB (CK-2) 1.14 Troponin I < 0.012 Impressions: Chest X-Ray 06/16/18 18:35 IMPRESSION: NO ACUTE RADIOGRAPHIC FINDING IN THE CHEST. Assessment & Plan - Diagnosis (1) Chest pain Qualifiers: Chest pain type: unspecified Qualified Code(s): R07.9 - Chest pain, unspecified Is this a current diagnosis for this admission?: Yes Plan: multiple risk factors for coronary artery disease and subsequently will observe and evaluation of acute coronary syndrome versus coronary artery disease with anginal equivalents. Cardiac monitoring blood pressure Q6 hours ,TSH, lipid profile, serial cardiac enzymes and cardiac stress test (2) High blood pressure Qualifiers: Hypertension type: essential hypertension Qualified Code(s): I10 - Essential (primary) hypertension Is this a current diagnosis for this admission?: Yes Plan: Outpatient regiment resumed (3) Tobacco abuse Plan: Tobacco Dependence patient received tobacco cessation counseling and offered nicotine replacement options (4) Noncompliance with medication regimen Is this a current diagnosis for this admission?: Yes Plan: Education and strong recommendation to avoid energy drinks supplementation. - Time Time Spent: 30 to 50 Minutes
[2018-06-17] MEDS ORDERED: DOCUSATE SODIUM 100 MG CAPSULE PO SCH (10:00)
[2018-06-17 11:47] LABS: CREATINE KINASE MB 1.16 ng/mL (<4.55)
[2018-06-17 11:53] LABS: TROPONIN I < 0.012 ng/mL
--- NOTE | 2018-06-17 15:41 | WOMENS IMAGING REPORT ---
EXAM DESCRIPTION: BILAT DIAGNOSTIC MAMMO W/CAD; U/S BREAST UNILAT LIMITED COMPLETED DATE/TIME: 06/17/2018 12:21 pm; 06/17/2018 1:08 pm REASON FOR STUDY: BREAST PAIN; RT BREAST LUMP; LT BREAST PAIN COMPARISON: None. TECHNIQUE: Standard craniocaudal and mediolateral oblique views of each breast recorded using digita l acquisition. Bilateral 90 mediolateral views were obtained. LIMITATIONS: None. FINDINGS: RIGHT BREAST MASSES: No suspicious masses. Right breast intramammary lymph node in the far upper outer quadrant a bout 12 cm from the nipple. CALCIFICATIONS: No new or suspicious calcifications. ARCHITECTURAL DISTORTION: None. DEVELOPING DENSITY: None. ASYMMETRY: None noted. OTHER: No other significant findings. LEFT BREAST MASSES: No suspicious masses. CALCIFICATIONS: No new or suspicious calcifications. ARCHITECTURAL DISTORTION: None. DEVELOPING DENSITY: None. ASYMMETRY: None noted. OTHER: No other significant finding. Read with the assistance of CAD: [facility] - R2 Cenova Version 1.3 .[facility] - R2 Cenova Version 1.3 .[facility] - R2 Cenova Version 2.4 .[facility] - R2 Cenova Version 2.4 .[facility] - R2 Label Sewer Version 9.2 Bilateral breast ultrasound: On the right side, a 6 mm intramammary lymph node is present in the far upper outer quadrant 12 cm fr om the nipple, benign. This correlates with mammographic findings. Patient describes breast pain in the upper outer quadrant right breast, at the 10 to 11 o'clock position about 6 cm from the nipple a 9 x 6 mm breast parenchymal cyst is present. Patient describes breast pain in the left upper outer quadrant. Ultrasound of the left upper outer q uadrant breast up to the infraclavicular and axillary regions demonstrates no focal findings. IMPRESSION: No mammographic or sonographic evidence for malignancy bilaterally. BREAST DENSITY: b. There are scattered areas of fibroglandular density. BIRAD: 1 Negative. RECOMMENDATION: RECOMMENDED FOLLOW UP: Please continue yearly bilateral screening mammography/ tomos ynthesis in May 2019 SPECIFIC INTERVENTION/IMAGING/CONSULTATION RECOMMENDED:No additional intervention/ imaging/consultati on needed at this time. COMMUNICATION:Patient notified by letter. Dr Bowen notified COMMENT: The patient has been notified of the results by letter per MQSA requirements. Additional no tification policies are in place for contacting patient with suspicious or incomplete findings. Quality ID #[id number]: The [employer] recommends an annual screening mammogram for women aged 40 years or over. This facility utilizes a reminder system to ensure that all patients receive reminder letters, and/or direct phone calls for appointments. This includes reminders for routine scr eening mammograms, diagnostic mammograms, or other Breast Imaging Interventions when appropriate. Th is patient will be placed in the appropriate reminder system. The [employer] (ACR) has developed recommendations for screening MRI of the breast s in certain patient populations, to be used in conjunction with mammography. Breast MRI surveillanc e may be appropriate for women with more than 20% lifetime risk of developing breast cancer as deter mined by genetic testing, significant family history of the disease, or history of mantle radiation f or Hodgkins Disease. ACR Practice Guidelines 2008. TECHNICAL DOCUMENTATION: FINDING NUMBER: (1) ASSESSMENT: (1) JOB ID: [id number]- All Rights Reserved Reading location - IP/workstation name: [email or web address]
--- NOTE | 2018-06-17 15:41 | WOMENS IMAGING REPORT ---
EXAM DESCRIPTION: BILAT DIAGNOSTIC MAMMO W/CAD; U/S BREAST UNILAT LIMITED COMPLETED DATE/TIME: 06/17/2018 12:21 pm; 06/17/2018 1:08 pm REASON FOR STUDY: BREAST PAIN; RT BREAST LUMP; LT BREAST PAIN COMPARISON: None. TECHNIQUE: Standard craniocaudal and mediolateral oblique views of each breast recorded using digita l acquisition. Bilateral 90 mediolateral views were obtained. LIMITATIONS: None. FINDINGS: RIGHT BREAST MASSES: No suspicious masses. Right breast intramammary lymph node in the far upper outer quadrant a bout 12 cm from the nipple. CALCIFICATIONS: No new or suspicious calcifications. ARCHITECTURAL DISTORTION: None. DEVELOPING DENSITY: None. ASYMMETRY: None noted. OTHER: No other significant findings. LEFT BREAST MASSES: No suspicious masses. CALCIFICATIONS: No new or suspicious calcifications. ARCHITECTURAL DISTORTION: None. DEVELOPING DENSITY: None. ASYMMETRY: None noted. OTHER: No other significant finding. Read with the assistance of CAD: .[facility] - R2 Cenova Version 1.3 .[facility] Imaging - R2 Cenova Version 1.[address] .[facility] Imaging - R2 Cenova Version 2.4 .[facility] - R2 Cenova Version 2.4 .[facility] - R2 Email Marketing Manager Version 9.2 Bilateral breast ultrasound: On the right side, a 6 mm intramammary lymph node is present in the far upper outer quadrant 12 cm fr om the nipple, benign. This correlates with mammographic findings. Patient describes breast pain in the upper outer quadrant right breast, at the 10 to 11 o'clock position about 6 cm from the nipple a 9 x 6 mm breast parenchymal cyst is present. Patient describes breast pain in the left upper outer quadrant. Ultrasound of the left upper outer q uadrant breast up to the infraclavicular and axillary regions demonstrates no focal findings. IMPRESSION: No mammographic or sonographic evidence for malignancy bilaterally. BREAST DENSITY: b. There are scattered areas of fibroglandular density. BIRAD: 1 Negative. RECOMMENDATION: RECOMMENDED FOLLOW UP: Please continue yearly bilateral screening mammography/ tomos ynthesis in May 2019 SPECIFIC INTERVENTION/IMAGING/CONSULTATION RECOMMENDED:No additional intervention/ imaging/consultati on needed at this time. COMMUNICATION:Patient notified by letter. Dr Bowen notified COMMENT: The patient has been notified of the results by letter per MQSA requirements. Additional no tification policies are in place for contacting patient with suspicious or incomplete findings. Quality ID #[id number]: The [employer] recommends an annual screening mammogram for women aged 40 years or over. This facility utilizes a reminder system to ensure that all patients receive reminder letters, and/or direct phone calls for appointments. This includes reminders for routine scr eening mammograms, diagnostic mammograms, or other Breast Imaging Interventions when appropriate. Th is patient will be placed in the appropriate reminder system. The [employer] (ACR) has developed recommendations for screening MRI of the breast s in certain patient populations, to be used in conjunction with mammography. Breast MRI surveillanc e may be appropriate for women with more than 20% lifetime risk of developing breast cancer as deter mined by genetic testing, significant family history of the disease, or history of mantle radiation f or Hodgkins Disease. ACR Practice Guidelines 2008. TECHNICAL DOCUMENTATION: FINDING NUMBER: (1) ASSESSMENT: (1) JOB ID: [id number]- All Rights Reserved Reading location - IP/workstation name: [email or web address]
--- NOTE | 2018-06-17 15:41 | WOMENS IMAGING REPORT ---
EXAM DESCRIPTION: BILAT DIAGNOSTIC MAMMO W/CAD; U/S BREAST UNILAT LIMITED COMPLETED DATE/TIME: 06/17/2018 12:21 pm; 06/17/2018 1:08 pm REASON FOR STUDY: BREAST PAIN; RT BREAST LUMP; LT BREAST PAIN COMPARISON: None. TECHNIQUE: Standard craniocaudal and mediolateral oblique views of each breast recorded using digita l acquisition. Bilateral 90 mediolateral views were obtained. LIMITATIONS: None. FINDINGS: RIGHT BREAST MASSES: No suspicious masses. Right breast intramammary lymph node in the far upper outer quadrant a bout 12 cm from the nipple. CALCIFICATIONS: No new or suspicious calcifications. ARCHITECTURAL DISTORTION: None. DEVELOPING DENSITY: None. ASYMMETRY: None noted. OTHER: No other significant findings. LEFT BREAST MASSES: No suspicious masses. CALCIFICATIONS: No new or suspicious calcifications. ARCHITECTURAL DISTORTION: None. DEVELOPING DENSITY: None. ASYMMETRY: None noted. OTHER: No other significant finding. Read with the assistance of CAD: .[facility] - R2 Cenova Version 1.3 .[facility] Imaging - R2 Cenova Version 1.3 .[facility] Imaging - R2 Cenova Version 2.4 .[facility] [place] - R2 Cenova Version 2.4 .[facility] - R2 Head Waiter Version 9.2 Bilateral breast ultrasound: On the right side, a 6 mm intramammary lymph node is present in the far upper outer quadrant 12 cm fr om the nipple, benign. This correlates with mammographic findings. Patient describes breast pain in the upper outer quadrant right breast, at the 10 to 11 o'clock position about 6 cm from the nipple a 9 x 6 mm breast parenchymal cyst is present. Patient describes breast pain in the left upper outer quadrant. Ultrasound of the left upper outer q uadrant breast up to the infraclavicular and axillary regions demonstrates no focal findings. IMPRESSION: No mammographic or sonographic evidence for malignancy bilaterally. BREAST DENSITY: b. There are scattered areas of fibroglandular density. BIRAD: 1 Negative. RECOMMENDATION: RECOMMENDED FOLLOW UP: Please continue yearly bilateral screening mammography/ tomos ynthesis in May 2019 SPECIFIC INTERVENTION/IMAGING/CONSULTATION RECOMMENDED:No additional intervention/ imaging/consultati on needed at this time. COMMUNICATION:Patient notified by letter. Dr Bowen notified COMMENT: The patient has been notified of the results by letter per MQSA requirements. Additional no tification policies are in place for contacting patient with suspicious or incomplete findings. Quality ID #[id number]: The [employer] recommends an annual screening mammogram for women aged 40 years or over. This facility utilizes a reminder system to ensure that all patients receive reminder letters, and/or direct phone calls for appointments. This includes reminders for routine scr eening mammograms, diagnostic mammograms, or other Breast Imaging Interventions when appropriate. Th is patient will be placed in the appropriate reminder system. The [employer] (ACR) has developed recommendations for screening MRI of the breast s in certain patient populations, to be used in conjunction with mammography. Breast MRI surveillanc e may be appropriate for women with more than 20% lifetime risk of developing breast cancer as deter mined by genetic testing, significant family history of the disease, or history of mantle radiation f or Hodgkins Disease. ACR Practice Guidelines 2008. TECHNICAL DOCUMENTATION: FINDING NUMBER: (1) ASSESSMENT: (1) JOB ID: [id number] [employer]- All Rights Reserved Reading location - IP/workstation name: [email or web address]
[2018-06-17 16:57] VITALS: BP 124/81
--- NOTE | 2018-06-17 17:33 | PDOC DISCHARGE SUMMARY ---
General - Admit/Disc Date/PCP Admission Date/Primary Care Provider: 06/16/18 23:27 JAYNE RUBIO PA-C Discharge Date: 06/17/18 - Discharge Diagnosis (1) Atypical chest pain Is this a current diagnosis for this admission?: Yes - Additional Information Home Medications: Acetaminophen [Tylenol 325 mg Tablet] 650 mg PO Q6 PRN tablet 06/17/18 History of Present Illness History of Present Illness: Admitting hospitalist's H&P: DONNA PICKARD is a 38 year old female with a past medical history of hypertension, tobacco, GERD and depression. Patient presents 6 hours after an onset of left-sided retrosternal chest pain with radiation to the neck and shoulder occurring at rest pain was 4 out of 5 intensity dull in nature associated with shortness of breath, nausea, diaphoresis and palpitations. Pain resolved spontaneously without intervention. She is unable to identify alleviating or exacerbating factors. In the emergency room she has an unremarkable workup and referred to the hospitalist for observation. Patient admits missing several doses of antihypertensive medication, and to frequent use of energy drinks. Hospital Course Hospital Course: Patient was admitted for atypical chest pain. Troponins were negative x 3 with no acute changes on EKG. She went for a stress test which also came back negative. On encounter this morning, ches tpain reproducible. She complains of a focal left anterior chest tenderness. And chest Breast exam was done and a palpable ?cyst was initially appreciated on the left superior outer quadrant also tender when pressed. A breast US and mammo was pursued but did not show any lesions on the left but she did have a small cyst on the right breast. Chest pain is non cardiac in origin likely musculoskeletal. She was recommended about mammo every 1-2 yrs with PCP. Physical Exam Vital Signs: Temp Pulse Resp BP Pulse Ox 98.3 F 65 15 111/55 L 98 06/17/18 15:52 06/17/18 15:52 06/17/18 15:52 06/17/18 15:52 06/17/18 15:52 Intake & Output 06/16/18 06/17/18 06/18/18 06:59 06:59 06:59 Weight 184 lb 8.43 oz General appearance: PRESENT: no acute distress, well-developed, well-nourished Head exam: PRESENT: atraumatic, normocephalic Eye exam: PRESENT: conjunctiva pink, EOMI, PERRLA. ABSENT: scleral icterus Ear exam: PRESENT: normal external ear exam Mouth exam: PRESENT: moist, tongue midline Neck exam: ABSENT: carotid bruit, JVD, lymphadenopathy, thyromegaly Respiratory exam: PRESENT: clear to auscultation zev. ABSENT: rales, rhonchi, wheezes Cardiovascular exam: PRESENT: RRR. ABSENT: diastolic murmur, rubs, systolic murmur Pulses: PRESENT: normal dorsalis pedis pul Vascular exam: PRESENT: normal capillary refill GI/Abdominal exam: PRESENT: normal bowel sounds, soft. ABSENT: distended, guarding, mass, organolmegaly, rebound, tenderness Rectal exam: PRESENT: deferred Extremities exam: PRESENT: full ROM. ABSENT: calf tenderness, clubbing, pedal edema Neurological exam: PRESENT: alert, awake, oriented to person, oriented to place, oriented to time, oriented to situation, CN II-XII grossly intact. ABSENT: motor sensory deficit Results Laboratory Results: 06/16/18 19:00 06/16/18 19:00 06/16/18 06/16/18 06/17/18 19:00 19:00 04:45 WBC 11.3 H RBC 4.30 Hgb 13.7 Hct 40.4 MCV 94 MCH 31.8 MCHC 33.9 RDW 14.5 H Plt Count 289 Seg Neutrophils % 55.6 Lymphocytes % 32.1 Monocytes % 9.0 Eosinophils % 2.5 Basophils % 0.8 Absolute Neutrophils 6.3 Absolute Lymphocytes 3.6 Absolute Monocytes 1.0 Absolute Eosinophils 0.3 Absolute Basophils 0.1 Sodium 141.5 Potassium 4.1 Chloride 105 Carbon Dioxide 30 Anion Gap 7 BUN 14 Creatinine 0.68 Est GFR ( Amer) > 60 Est GFR (Non-Af Amer) > 60 Glucose 104 Calcium 9.4 Total Bilirubin 0.5 AST 31 ALT 25 Alkaline Phosphatase 73 Total Protein 7.7 Albumin 4.6 Triglycerides 131 Cholesterol 174.75 LDL Cholesterol Direct 98 VLDL Cholesterol 26.0 HDL Cholesterol 43 06/16/18 06/16/18 06/16/18 19:00 19:00 22:50 Creatine Kinase 147 H CK-MB (CK-2) 1.66 Troponin I < 0.012 < 0.012 06/17/18 06/17/18 06/17/18 04:45 04:45 10:45 Creatine Kinase 117 CK-MB (CK-2) 1.14 1.16 Troponin I < 0.012 < 0.012 Impressions: Chest X-Ray 06/16/18 18:35 IMPRESSION: NO ACUTE RADIOGRAPHIC FINDING IN THE CHEST. Breast Ultrasound 06/17/18 00:00 IMPRESSION: No mammographic or sonographic evidence for malignancy bilaterally. Mammogram Computer Aided Diagnostic 06/17/18 11:35 IMPRESSION: No mammographic or sonographic evidence for malignancy bilaterally. Qualifiers - * PATIENT BEING DISCHARGED WITH ANY OF THE FOLLOWING DIAGNOSIS: No
[2018-06-17] MEDS ORDERED: ATORVASTATIN CALCIUM 80 MG TABLET PO SCH (22:00)
--- NOTE | 2018-06-17 22:25 | DRAGON STRESS TEST REPORT ---
Exercise EKG treadmill stress test. Data procedure: 06/17/2018. Ordering Provider: Dr. Kaleb Dunne. Patient Status: Inpatient Indication: Chest pain and left arm pain. Coronary risk factors: Age, hypertension, hypercholesterolemia, tobacco abuse disorder, and strong family history of coronary artery disease.. Significant physical findings prior to stress testing show a blood pressure of 103/76 and a heart rate of 68 beats per minute. Auscultation of the heart shows normal S1 and S2.NoS3 or S4 gallops. Systolic murmur in the left sternal border and apex. Lungs are clear to auscultation and percussion. Resting 12-lead EKG:. Sinus Rhythm. T inversion in lead aVL only. Procedure: The patient was exercised on a standard Kamar protocol. . The patient walked a total of 6 minutes and 32 seconds on this protocol and reached a peak heart rate of 160 beats per minute, which is 88% of maximum predicted heart rate for age. This is at a workload of 8.60 METS. The test was stopped because of achievement of target heart rate. The patient described no symptoms of chest pain/discomfort. Exercise EKG's show:. There is no EKG evidence of exercise-induced ischemia. Arrhythmias seen:None. The blood pressure response was normal 179/69. At peak exercise the blood pressure was millimeters of Hg. The double product was 28.6 K. Summary of findings and interpretation: 1. No chest pain or chest discomfort symptoms reproduced. 2. No EKG evidence of ischemia in the form of ST segment depression. 3. Normal blood pressure response. 4. No arrhythmias seen. 5. Good exercise tolerance, good aerobic capacity. Diagnostic treadmill stress test negative for ischemia by EKG criteria. Recommendations: Aggressive risk factor modification, and treatment of underlying co-morbidities. MTDD
== END 2018-06-17 17:30 | disposition home or self-care (01) ==
LOC: ER 17:19 → EH 23:27 → 4W 06-17 01:05
PROVIDERS: ADMIT Internal Medicine; ATTEND Internal Medicine
DX: R07.89 Other chest pain (principal); I10 Essential (primary) hypertension; R06.02 Shortness of breath; R11.0 Nausea; R61 Generalized hyperhidrosis; R00.2 Palpitations; N60.01 Solitary cyst of right breast; F17.210 Nicotine dependence, cigarettes, uncomplicated; R51 Headache; Z59.7 Insufficient social insurance and welfare support; Z91.14 Patient's other noncompliance with medication regimen; Z86.14 Personal history of Methicillin resistant Staphylococcus aureus infection; Z98.51 Tubal ligation status; Z82.49 Family history of ischemic heart disease and other diseases of the circulatory system; Z85.828 Personal history of other malignant neoplasm of skin
CPT/HCPCS: 36415; 71046; 76642; 77066; 80053; 80061; 82550; 82553; 84484; 85025; 93005; 93010; 93017; 99285

== ENCOUNTER 2018-10-19 16:48 | Emergency (ER) | payer SELFPAY ==
[2018-10-19] MEDS ORDERED: ONDANSETRON HCL INJ/PF 4 MG/2 ML SDV IV ONE (17:27)
--- NOTE | 2018-10-19 17:30 | ER Document Report ---
ED Medical Screen (RME) - General Chief Complaint: Vomiting/Diarrhea Stated Complaint: FLU SYMPTOMS Primary Care Provider: JAYNE RUBIO PA-C [Primary Care Provider] - Follow up as needed TRAVEL OUTSIDE OF THE [place] IN LAST 30 DAYS: No - HPI Notes: 10/19/18 17:27 Patient is a 38-year-old female with a history of hypertension, tobacco, GERD and depression who presents to the emergency department complaining of nausea, vomiting, and watery diarrhea over the past 2 days. She is also had an intermittent sore throat that is worse at nighttime, subjective fever, and body aching over the past 10 days. Patient states that she is still able to drink some fluids, but does have a decreased p.o. intake. She is still urinating normally. Patient states that her friend has a similar illness that started ab out the same time. Denies GARY, neck pain, CP, SOB, Abd pain, or rash. I have treated and performed a rapid initial assessment of this patient. A comprehensive ED assessment and evaluation of the patient, analysis of test results and completion of medical decision making process will be conducted by additional ED providers. PHYSICAL EXAMINATION: GENERAL: Well-appearing, well-nourished and in no acute distress. A&Ox4. Answers questions appropriately. LUNGS: Breath sounds clear to auscultation bilaterally and equal. No wheezes rales or rhonchi. ENT: Nares patent and without discharge. oropharynx mild erythema without exudates. 1+ tonsilar hypertrophy with mild erythema no exudate. No palatine shift. Uvula midline. No tongue protrusion. No drooling, hoarseness, or airway compromise. Moist mucous membranes. No sinus tenderness. NECK: Normal range of motion, supple without lymphadenopathy. No rigidity/meningismus. HEART: Regular rate and rhythm without murmurs, rubs, gallops. ABDOMEN: Soft, nondistended abdomen. No guarding, no rebound. Normal bowel sounds present. No CVA tenderness bilaterally. Grossly nontender (cannot elicit thorough abd exam w/o table, however). Extremities: No cyanosis, clubbing, or edema b/l. NEUROLOGICAL: Normal speech, normal gait. PSYCH: Normal mood, normal affect. - Related Data Allergies/Adverse Reactions: codeine [Codeine] Allergy (Severe, Verified 10/19/18 16:52) rash Penicillins Allergy (Severe, Verified 10/19/18 16:52) rash Past Medical History - Social History Family history: Arthritis, CAD, CVA, DM, Hypertension - Past Medical History Cardiac Medical History: Reports: Hx Hypertension Renal/ Medical History: Denies: Hx Peritoneal Dialysis Malignancy Medical History: Reports: Hx Skin Cancer Skin Medical History: Reports Hx Cellulitis, Reports Hx MRSA Psychiatric Medical History: Reports: Hx Depression Infectious Medical History: Reports: Hx MRSA Past Surgical History: Reports: Hx Section, Hx Tubal Ligation - Immunizations Immunizations up to date: Yes Hx Diphtheria, Pertussis, Tetanus Vaccination: Yes History of Influenza Vaccine for 02/2017 - 07/2017 Season: Refused Physical Exam - Vital signs Vitals: Temp Pulse Resp BP Pulse Ox 98.3 F 56 L 18 166/101 H 97 10/19/18 16:56 10/19/18 16:56 10/19/18 16:56 10/19/18 16:56 10/19/18 16:56 Course - Vital Signs Vital signs: Temp Pulse Resp BP Pulse Ox 98.3 F 56 L 18 166/101 H 97 10/19/18 16:56 10/19/18 16:56 10/19/18 16:56 10/19/18 16:56 10/19/18 16:56 Doctor's Discharge - Discharge Referrals: JAYNE RUBIO PA-C [Primary Care Provider] - Follow up as needed
[2018-10-19] MEDS: NORMAL SALINE 1000 ML 1,000 ML IV PRN ×2 (19:00→20:12)
[2018-10-19 19:35] LABS: ABSOLUTE BASOPHILS # (AUTO) 0.1 10^3/uL (0.0-0.2); ABSOLUTE EOSINOPHILS # (AUTO) 0.2 10^3/uL (0.0-0.6); ABSOLUTE LYMPHOCYTES (AUTO) 4.4 10^3/uL (0.5-4.7); ABSOLUTE MONOCYTES (AUTO) 1.2 10^3/uL (0.1-1.4); ABSOLUTE NEUT (AUTO) 8.5 10^3/uL (1.7-8.2); BASOPHILS % (AUTO) 0.6 % (0-2); EOSINOPHILS % (AUTO) 1.4 % (0-6); HEMATOCRIT 40.9 % (36.0-47.0); HEMOGLOBIN 13.6 g/dL (12.0-15.5); LYMPHOCYTES % (AUTO) 30.5 % (13-45); MEAN CORPUSCULAR HEMOGLOBIN 31.5 pg (27.0-33.4); MEAN CORPUSCULAR HGB CONC 33.3 g/dL (32.0-36.0); MEAN CORPUSCULAR VOLUME 95 fl (80-97); MONOCYTES % (AUTO) 8.1 % (3-13); PLATELET COUNT 349 10^3/uL (150-450); RED BLOOD COUNT 4.33 10^6/uL (3.72-5.28); RED CELL DISTRIBUTION WIDTH 14.8 % (11.5-14.0); SEGMENTED NEUTROPHILS % (AUTO) 59.4 % (42-78); TOTAL CELLS COUNTED % (AUTO) 100 %; WHITE BLOOD COUNT 14.3 10^3/uL (4.0-10.5)
[2018-10-19 19:40] LABS: APPEARANCE,URINE CLEAR; BILIRUBIN,URINE NEGATIVE (NEGATIVE); COLOR,URINE STRAW; GLUCOSE, URINE NEGATIVE (NEGATIVE); KETONES,URINE NEGATIVE (NEGATIVE); LEUKOCYTE ESTERASE,URINE NEGATIVE (NEGATIVE); NITRITE,URINE NEGATIVE (NEGATIVE); PROTEIN,URINE NEGATIVE (NEGATIVE); URINE SPECIFIC GRAVITY 1.008; UROBILINOGEN,URINE NEGATIVE mg/dL (<2.0)
[2018-10-19 19:53] LABS: ALANINE AMINOTRANSFERASE 60 U/L (9-52); ALBUMIN 4.5 g/dL (3.5-5.0); ALKALINE PHOSPHATASE 87 U/L (38-126); ANION GAP 13 (5-19); ASPARTATE AMINO TRANSFERASE 66 U/L (14-36); BILIRUBIN,DIRECT 0.2 mg/dL (0.0-0.4); BILIRUBIN,TOTAL 0.6 mg/dL (0.2-1.3); BLOOD UREA NITROGEN 13 mg/dL (7-20); CALCIUM 9.6 mg/dL (8.4-10.2); CARBON DIOXIDE 27 mmol/L (22-30); CHLORIDE 102 mmol/L (98-107); GLUCOSE 93 mg/dL (75-110); LIPASE 84.4 U/L (23-300); POTASSIUM 4.1 mmol/L (3.6-5.0); SODIUM 141.9 mmol/L (137-145); TOTAL PROTEIN 8.2 g/dL (6.3-8.2)
--- NOTE | 2018-10-19 20:15 | RADIOLOGY REPORT (SQ) ---
EXAM DESCRIPTION: XR CHEST 2 VIEWS COMPLETED DATE/TME: 10/19/2018 19:37 CLINICAL HISTORY: 38 years, Female, cough/ roomate has same symptoms and has pneu COMPARISON: Prior study from 06/16/2018 NUMBER OF VIEWS: Two TECHNIQUE: Frontal and lateral radiograph of the chest were obtained. LIMITATIONS: None. FINDINGS: Cardiac and mediastinal contours are normal in appearance. Lungs are clear. No pleural effusion or pneumothorax. IMPRESSION: No acute disease. copyright 2010 [employer]- All Rights Reserved
[2018-10-19] MEDS ORDERED: IPRATROPIUM/ALBUTEROL 0.5-2.5 MG/3 ML AMPUL NEB ONE (21:24)
--- NOTE | 2018-10-19 21:27 | ER Document Report ---
ED General - General Chief Complaint: Vomiting/Diarrhea Stated Complaint: FLU SYMPTOMS Time Seen by Provider: 10/19/18 17:30 Primary Care Provider: JAYNE RUBIO PA-C [Primary Care Provider] - Follow up as needed Mode of Arrival: Ambulatory Information source: Patient Notes: Patient is a 38-year-old female with a history of hypertension, tobacco, GERD and depression who presents to the emergency department complaining of nausea, vomiting, and watery diarrhea over the past 2 days. She is also had an intermittent sore throat that is worse at nighttime, subjective fever, and body aching over the past 10 days. Patient states that she is still able to drink some fluids, but does have a decreased p.o. intake. She is still urinating normally. Patient states that her friend has a similar illness that started about the same time. Denies GARY, neck pain, CP, SOB, Abd pain, or rash. TRAVEL OUTSIDE OF THE [place] IN LAST 30 DAYS: No - HPI Onset: Other Onset/Duration: Gradual, Persistent Quality of pain: Achy, Burning Severity: Mild Associated symptoms: Productive cough, Diarrhea, Headache, Nausea, Vomiting, Rhinnorhea, Sinus pain/drainage, Sore throat Exacerbated by: Food Relieved by: Denies Similar symptoms previously: No Recently seen / treated by doctor: No - Related Data Allergies/Adverse Reactions: codeine [Codeine] Allergy (Severe, Verified 10/19/18 16:52) rash Penicillins Allergy (Severe, Verified 10/19/18 16:52) rash Past Medical History - General Information source: Patient - Social History Smoking Status: Current Every Day Smoker Cigarette use (# per day): Yes - 10 Smoking Education Provided: Yes - Smoking cessation counseling was provided for 4 minutes at the bedside Frequency of alcohol use: Occasional Drug Abuse: None Lives with: Spouse/Significant other Family History: CAD - Mother had first [place] at the age of 37., DM, Hypertension, Malignancy - Mother has melanoma., Other - Mother had a stroke at the age of 32. Patient has suicidal ideation: No Patient has homicidal ideation: No - Past Medical History Cardiac Medical History: Reports: Hx Hypertension Renal/ Medical History: Denies: Hx Peritoneal Dialysis Malignancy Medical History: Reports: Hx Skin Cancer Skin Medical History: Reports Hx Cellulitis, Reports Hx MRSA Psychiatric Medical History: Reports: Hx Depression Infectious Medical History: Reports: Hx MRSA Past Surgical History: Reports: Hx Section, Hx Tubal Ligation - Immunizations Immunizations up to date: Yes Hx Diphtheria, Pertussis, Tetanus Vaccination: Yes Review of Systems - Review of Systems Notes: REVIEW OF SYSTEMS: CONSTITUTIONAL : Denies fever, chills, or sweats. Denies recent illness. Denies weight loss, recent hospitalizations. EENT: Denies visual changes, eye pain. + sore throat, denies oral lesions, difficulty swallowing. CARDIOVASCULAR: Denies chest pain. Denies palpitations. Denies lower extremity edema. RESPIRATORY: + cough. + shortness of breath, wheezing. GASTROINTESTINAL: Denies abdominal pain or distention. + nausea, vomiting, or diarrhea. Denies blood in vomitus, stools, or per rectum. Denies black, tarry stools. Denies constipation. GENITOURINARY: Denies difficulty urinating, painful urination, frequency, blood in urine, or vaginal discharge. MUSCULOSKELETAL: Denies back or neck pain or stiffness. Denies joint pain or swelling. SKIN: Denies rash, lesions or sores. HEMATOLOGIC : Denies easy bruising or bleeding. LYMPHATIC: Denies swollen glands. NEUROLOGICAL: Denies confusion or altered mental status. Denies loss of consciousness. Denies dizziness or lightheadedness. Denies headache. Denies weakness or paralysis. Denies problems difficulty with ambulation, slurred speech. Denies sensory loss, numbness, or tingling. Denies seizures. PSYCHIATRIC: Denies anxiety or stress. Denies depression, suicidal ideation, or homicidal ideation. Denies visual or auditory hallucinations. Physical Exam - Vital signs Vitals: Temp Pulse Resp BP Pulse Ox 98.3 F 56 L 18 166/101 H 97 10/19/18 16:56 10/19/18 16:56 10/19/18 16:56 10/19/18 16:56 10/19/18 16:56 - Notes Notes: PHYSICAL EXAMINATION: GENERAL: Well-appearing, well-nourished and in no acute distress. HEAD: Atraumatic, normocephalic. EYES: Pupils equal round and reactive to light, extraocular movements intact, conjunctiva are normal. ENT: Nares patent, oropharynx clear without exudates. Moist mucous membranes. NECK: Normal range of motion, supple without lymphadenopathy LUNGS: Breath sounds clear to auscultation bilaterally and equal. No wheezes rales or rhonchi. HEART: Regular rate and rhythm without murmurs ABDOMEN: Soft, nontender, nondistended abdomen. No guarding, no rebound. No masses appreciated. Female : deferred Musculoskeletal: Normal range of motion, no pitting or edema. No cyanosis. NEUROLOGICAL: Cranial nerves grossly intact. Normal speech, normal gait. Normal sensory, motor exams PSYCH: Normal mood, normal affect. SKIN: Warm, Dry, normal turgor, no rashes or lesions noted. Course - Re-evaluation Re-evalutation: 10/20/18 19:43 Presentation of an overall well-appearing patient in no acute distress with complaints of nausea, vomiting, diarrhea. This is consistent with likely viral gastroenteritis. Patient has no abdominal tenderness on exam and specifically no tenderness in the RLQ, LLQ, RUQ. Overall well hydrated on exam. Able to tolerate oral intake here in the emergency department. Low clinical suspicion for any acute life-threatening etiology based on exam and history including acute cholecystitis, SBO, appendicitis, nephrolithiasis, or pylonephritis. CMP without evidence of acute hepatitis or significant dehydration. Will plan for discharge at this time with return precautions and followup recommendations. - Vital Signs Vital signs: Temp Pulse Resp BP Pulse Ox 98.5 F 69 17 152/109 H 97 10/19/18 23:08 10/19/18 23:08 10/19/18 23:08 10/19/18 23:08 10/19/18 23:08 - Laboratory Result Diagrams: 10/19/18 19:00 10/19/18 18:47 Laboratory results interpreted by me: 10/19/18 10/19/18 10/19/18 18:47 18:47 19:00 WBC 14.3 H RDW 14.8 H Absolute Neutrophils 8.5 H AST 66 H ALT 60 H Urine Blood SMALL H - Diagnostic Test Radiology reviewed: Image reviewed, Reports reviewed Discharge - Discharge Clinical Impression: Nausea vomiting and diarrhea, Elevated blood pressure reading, Noncompliance with medication regimen, Tobacco abuse High blood pressure Qualifiers: Hypertension type: unspecified Qualified Code(s): I10 - Essential (primary) hypertension Pharyngitis Qualifiers: Pharyngitis/tonsillitis etiology: unspecified etiology Qualified Code(s): J02.9 - Acute pharyngitis, unspecified Upper respiratory infection Qualifiers: URI type: unspecified URI Qualified Code(s): J06.9 - Acute upper respiratory infection, unspecified Condition: Good Disposition: HOME, SELF-CARE Instructions: Antinausea Medication ([facility]), Intravenous (IV) Fluids ([facility]), Upper Respiratory Illness ([facility]), Viral Syndrome ([facility]), Vomiting ([facility]) Additional Instructions: Presentation of an overall well-appearing patient in no acute distress with complaints of nausea, vomiting, diarrhea. This is consistent with likely viral gastroenteritis. Patient has no abdominal tenderness on exam and specifically no tenderness in the RLQ, LLQ, RUQ. Overall well hydrated on exam. Able to to lerate oral intake here in the emergency department. Low clinical suspicion for any acute life-threatening etiology based on exam and history including acute cholecystitis, SBO, appendicitis, nephrolithiasis, or pylonephritis. CMP without evidence of acute hepatitis or significant dehydration. Will plan for discharge at this time with return precautions and followup recommendations. Presentation is most consistent with a viral upper respiratory infection. Patient is overall well appearance, vitals within normal limits, well-hydrated. Patient denies any headache, neck pain, and has no evidence of meningismus on examination. Lungs are clear bilaterally. No evidence of respiratory distress. Based on clinical exam and history, I do not suspect an acute pneumonia, meningitis, strep pharyngitis, or an acute encephalitis. No laboratory or imaging testing is indicated at this time. Will discharge patient with return precautions and followup recommendations. They are in agreement this plan have verbalized understanding return precautions. Prescriptions: Ibuprofen [Motrin 600 Mg Tablet] 600 mg PO TID #15 tablet Ondansetron [Zofran Odt 4 mg Tablet] 1 - 2 tab PO Q4H PRN #15 tab.rapdis PRN Reason: For Nausea/Vomiting Forms: Smoking Cessation Education, Elevated Blood Pressure Referrals: JAYNE RUBIO PA-C [Primary Care Provider] - Follow up as needed
[2018-10-19] MEDS ORDERED: ONDANSETRON ODT 4 MG TAB (6 TAB/ER DISP) PO PRN (22:14)
[2018-10-19] MEDS ORDERED: ALBUTEROL SULFATE HFA (90 MCG/PUFF) 8 GM MDI (1 MDI/ER DISP) IH SCH (22:15)
[2018-10-19 23:47] VITALS: BP 152/109
== END 2018-10-19 23:15 | disposition home or self-care (01) ==
LOC: ER 16:48
DX: J06.9 Acute upper respiratory infection, unspecified (principal); J02.9 Acute pharyngitis, unspecified; R11.2 Nausea with vomiting, unspecified; R19.7 Diarrhea, unspecified; I10 Essential (primary) hypertension; R50.9 Fever, unspecified; M79.10 Myalgia, unspecified site; R63.0 Anorexia; R05 Cough; R51 Headache; J34.89 Other specified disorders of nose and nasal sinuses; R09.89 Other specified symptoms and signs involving the circulatory and respiratory systems; R09.81 Nasal congestion; F17.210 Nicotine dependence, cigarettes, uncomplicated; Z91.14 Patient's other noncompliance with medication regimen
CPT/HCPCS: 99406; 94640; 99283; 96361; 96374; 36415; 87070; 87880; 83690; 85025; 81025; 80053; 81001; 71046; J2405; J7030; J3490; J7620

== ENCOUNTER 2019-03-27 09:27 | Emergency (ER) | payer SELFPAY ==
--- NOTE | 2019-03-27 13:34 | ER Document Report ---
ED General - General Chief Complaint: Breast Lump Stated Complaint: POSSIBLE ABSCESS Time Seen by Provider: 03/27/19 13:06 TRAVEL OUTSIDE OF THE [place] IN LAST 30 DAYS: No - HPI Notes: Patient presents from family doctor's office admission stating that the family doctor sent her to the emergency department for a breast biopsy. She was here in May of this year and had a mammogram that is on file that showed possible 6 mm reactive lymph node in her left breast. She is continued to have mild irritation of her left breast which prompted the family doctor sent her here. No recent fevers chills or illnesses. - Related Data Allergies/Adverse Reactions: codeine [Codeine] Allergy (Severe, Verified 10/19/18 16:52) rash Penicillins Allergy (Severe, Verified 10/19/18 16:52) rash Home Medications: Prozac Past Medical History - Social History Smoking Status: Unknown if Ever Smoked Family History: CAD - Mother had first DC at the age of 37., DM, Hypertension, Malignancy - Mother has melanoma., Other - Mother had a stroke at the age of 32. Patient has suicidal ideation: No Patient has homicidal ideation: No - Past Medical History Cardiac Medical History: Reports: Hx Hypertension Renal/ Medical History: Denies: Hx Peritoneal Dialysis Malignancy Medical History: Reports: Hx Skin Cancer Skin Medical History: Reports Hx Cellulitis, Reports Hx MRSA Psychiatric Medical History: Reports: Hx Depression Infectious Medical History: Reports: Hx MRSA Past Surgical History: Reports: Hx Section, Hx Tubal Ligation - Immunizations Immunizations up to date: Yes Hx Diphtheria, Pertussis, Tetanus Vaccination: Yes Review of Systems - Review of Systems Constitutional: No symptoms reported EENT: No symptoms reported Cardiovascular: No symptoms reported Respiratory: No symptoms reported Gastrointestinal: No symptoms reported Genitourinary: No symptoms reported Female Genitourinary: No symptoms reported Musculoskeletal: See HPI Skin: No symptoms reported Hematologic/Lymphatic: No symptoms reported Neurological/Psychological: No symptoms reported Physical Exam - Vital signs Vitals: Temp Pulse Resp BP Pulse Ox 98.1 F 57 L 16 132/76 H 98 03/27/19 09:36 03/27/19 09:36 03/27/19 09:36 03/27/19 09:36 03/27/19 09:36 - General General appearance: Appears well, Alert - HEENT Head: Normocephalic, Atraumatic - Respiratory Respiratory status: No respiratory distress Chest status: Nontender Breath sounds: Normal - Cardiovascular Rhythm: Regular Heart sounds: Normal auscultation Murmur: No - Abdominal Inspection: Normal Distension: No distension - Skin Skin Temperature: Warm - [employer]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 Palpation of left breast reveals no acute abnormalities no fluctuance tenderness or warmth. Course - Re-evaluation Re-evalutation: 03/27/19 13:33 Discussed with patient that I did review the mammogram which radiology recommended yearly mammogram next one scheduled for May 2019. She is to follow-up with her family physician then there is no need for any biopsy at this time unless repeat mammogram in 1999 reveals some other acute abnormality - Vital Signs Vital signs: Temp Pulse Resp BP Pulse Ox 98.1 F 57 L 16 132/76 H 98 03/27/19 09:36 03/27/19 09:36 03/27/19 09:36 03/27/19 09:36 03/27/19 09:36 Discharge - Discharge Clinical Impression: Concern for left breast lump Condition: Good Disposition: HOME, SELF-CARE Additional Instructions: Please follow-up with your family doctor in [place] for any concerns otherwise you should have a repeat mammogram in May of next year.
[2019-03-27 14:23] VITALS: BP 132/72
== END 2019-03-27 14:25 | disposition home or self-care (01) ==
LOC: ER 09:27
DX: N64.59 Other signs and symptoms in breast (principal); I10 Essential (primary) hypertension; Z88.5 Allergy status to narcotic agent; Z88.0 Allergy status to penicillin
CPT/HCPCS: 99282

== ENCOUNTER 2020-03-20 08:23 | Emergency (ER) | payer BC ==
[2020-03-20 08:51] LABS: ABSOLUTE BASOPHILS # (AUTO) 0.1 10^3/uL (0.0-0.2); ABSOLUTE EOSINOPHILS # (AUTO) 0.2 10^3/uL (0.0-0.6); ABSOLUTE MONOCYTES (AUTO) 0.7 10^3/uL (0.1-1.4); BASOPHILS % (AUTO) 0.9 % (0-2); EOSINOPHILS % (AUTO) 2.1 % (0-6); HEMATOCRIT 35.5 % (36.0-47.0); HEMOGLOBIN 12.6 g/dL (12.0-15.5); LYMPHOCYTES % (AUTO) 29.9 % (13-45); MEAN CORPUSCULAR HEMOGLOBIN 34.9 pg (27.0-33.4); MEAN CORPUSCULAR HGB CONC 35.5 g/dL (32.0-36.0); MEAN CORPUSCULAR VOLUME 98 fl (80-97); MONOCYTES % (AUTO) 6.9 % (3-13); PLATELET COUNT 255 10^3/uL (150-450); RED BLOOD COUNT 3.61 10^6/uL (3.72-5.28); RED CELL DISTRIBUTION WIDTH 13.1 % (11.5-14.0); SEGMENTED NEUTROPHILS % (AUTO) 60.2 % (42-78); TOTAL CELLS COUNTED % (AUTO) 100 %
[2020-03-20 08:57] LABS: APPEARANCE,URINE CLEAR; BILIRUBIN,URINE NEGATIVE (NEGATIVE); COLOR,URINE COLORLESS; GLUCOSE, URINE NEGATIVE (NEGATIVE); KETONES,URINE NEGATIVE (NEGATIVE); LEUKOCYTE ESTERASE,URINE NEGATIVE (NEGATIVE); NITRITE,URINE NEGATIVE (NEGATIVE); PROTEIN,URINE NEGATIVE (NEGATIVE); URINE SPECIFIC GRAVITY 1.003; UROBILINOGEN,URINE NEGATIVE mg/dL (<2.0)
[2020-03-20 08:59] LABS: ALBUMIN 3.7 g/dL (3.5-5.0); ALKALINE PHOSPHATASE 89 U/L (38-126); ANION GAP 7 (5-19); ASPARTATE AMINO TRANSFERASE 40 U/L (14-36); BILIRUBIN,DIRECT 0.2 mg/dL (0.0-0.4); BILIRUBIN,TOTAL 0.5 mg/dL (0.2-1.3); BLOOD UREA NITROGEN 16 mg/dL (7-20); CALCIUM 8.7 mg/dL (8.4-10.2); CARBON DIOXIDE 27 mmol/L (22-30); CHLORIDE 107 mmol/L (98-107); CREATINE KINASE 218 U/L (30-135); GLUCOSE 108 mg/dL (75-110); POTASSIUM 4.2 mmol/L (3.6-5.0); TOTAL PROTEIN 6.3 g/dL (6.3-8.2)
[2020-03-20] MEDS ORDERED: ACETAMINOPHEN 325 MG TABLET PO ONE (08:59)
--- NOTE | 2020-03-20 09:04 | ER Document Report ---
ED Cardiac - General Chief Complaint: Chest Pain Stated Complaint: CHEST PAIN Time Seen by Provider: 03/20/20 08:50 Primary Care Provider: ISABELA ORTIZ MD [ACTIVE STAFF] - Follow up as needed Mode of Arrival: Medic Information source: Patient Notes: 38-year-old female patient with history of hypertension presenting to the emergency department chest pain. Patient reports this morning when she woke up she had some heaviness in her left arm. She states she got dressed and went to work. At 7 AM she started having discomfort in her chest. She states that the pain feels like a squeezing and pressure. She reports she took 325 mg of aspirin. Her coworkers called EMS. They gave her sublingual nitroglycerin which brought her pain down from 5/5-2/5. She reports she was clammy. She denies any nausea, vomiting, shortness of breath. Currently she reports pain 1/5, complains of a headache. Reports her left arm still feels heavy. She has a history of hypertension, skin cancer, she has had a tubal ligation and she is a smoker. TRAVEL OUTSIDE OF THE [place] IN LAST 30 DAYS: No - Related Data Allergies/Adverse Reactions: codeine [Codeine] Allergy (Severe, Verified 03/20/20 08:32) rash Penicillins Allergy (Severe, Verified 03/20/20 08:32) rash Past Medical History - General Information source: Patient - Social History Smoking Status: Current Every Day Smoker Frequency of alcohol use: None Drug Abuse: None Family History: CAD - Mother had first IN at the age of 37., DM, Hypertension, Malignancy - Mother has melanoma., Other - Mother had a stroke at the age of 32. - Past Medical History Cardiac Medical History: Reports: Hx Hypertension Renal/ Medical History: Denies: Hx Peritoneal Dialysis Malignancy Medical History: Reports: Hx Skin Cancer Skin Medical History: Reports Hx Cellulitis, Reports Hx MRSA Psychiatric Medical History: Reports: Hx Depression Infectious Medical History: Reports: Hx MRSA Past Surgical History: Reports: Hx Section, Hx Tubal Ligation - Immunizations Immunizations up to date: Yes Hx Diphtheria, Pertussis, Tetanus Vaccination: Yes Review of Systems - Review of Systems Constitutional: Other - "Clammy" Cardiovascular: Chest pain - With left arm heaviness -: Yes All other systems reviewed and negative Physical Exam - Vital signs Vitals: Pulse Ox 98 03/20/20 08:23 - Notes Notes: PHYSICAL EXAMINATION: GENERAL: Well-appearing, well-nourished and in no acute distress. HEAD: Atraumatic, normocephalic. EYES: Pupils equal round and reactive to light, extraocular movements intact, conjunctiva are normal. ENT: Nares patent, oropharynx clear without exudates. Moist mucous membranes. NECK: Normal range of motion, supple without lymphadenopathy LUNGS: Breath sounds clear to auscultation bilaterally and equal. No wheezes rales or rhonchi. HEART: Regular rate and rhythm without murmurs ABDOMEN: Soft, nontender, nondistended abdomen. No guarding, no rebound. No masses appreciated. Female : deferred Musculoskeletal: Reproducible pain with palpation to left chest wall. Normal range of motion to left arm, strong radial pulse. No obvious swelling. NEUROLOGICAL: Cranial nerves grossly intact. Normal speech, normal gait. Normal sensory, motor exams PSYCH: Normal mood, normal affect. SKIN: Warm, Dry, normal turgor, no rashes or lesions noted. Course - Re-evaluation Re-evalutation: 03/20/20 09:04 Well-appearing 39-year-old female presenting with chest pain with concerning symptoms. Patient's EKG was reviewed shows a sinus rhythm, rate of 62, normal axis, normal intervals, no ST segment elevations or depressions. 03/20/20 09:16 Upon review of patient's records patient was admitted here to this hospital for an ACS rule out. She had a negative stress test in 2019. Please see [facility] records. Her current EKG has no changes from previous. Patient has had no chest pain after initial evaluation. She has been given information for cardiology follow-up. She was encouraged to return to the emergency department if her symptoms return. - Vital Signs Vital signs: Temp Pulse Resp BP Pulse Ox 98.8 F 14 118/69 97 03/20/20 12:01 03/20/20 13:45 03/20/20 13:45 03/20/20 13:45 - Laboratory Result Diagrams: 03/20/20 08:05 03/20/20 08:05 Laboratory results interpreted by me: 03/20/20 03/20/20 03/20/20 08:05 08:05 08:35 RBC 3.61 L Hct 35.5 L MCV 98 H MCH 34.9 H AST 40 H Creatine Kinase 218 H Urine Blood SMALL H Discharge - Discharge Clinical Impression: Atypical chest pain Condition: Stable Disposition: HOME, SELF-CARE Additional Instructions: You were seen today for chest pain. The exact cause of your pain is unclear. However, based on your cardiac enzyme testing, chest x-ray, and EKG it does not appear that it is from an immediately life-threatening cause at this time. Although your testing here is normal it is important that you follow-up with your primary care physician for continued evaluation of this chest pain and possible echocardiogram and/or repeat stress testing. I recommended you see your physician within the next 24-48 hours to be evaluated for consideration of a stress test. Please return to emergency department immediately if you have worsening of your chest pain, shortness of breath, vomiting, become unable to exert yourself due to pain or difficulty breathing, you pass out, or have any pain that radiates into your arms, jaw, or back. Please also return if you have any additional symptoms that are concerning to you. Forms: Return to Work Referrals: ISABELA ORTIZ MD [ACTIVE STAFF] - Follow up as needed
[2020-03-20 09:11] LABS: CREATINE KINASE MB 2.65 ng/mL (<4.55)
[2020-03-20 09:12] LABS: TROPONIN I < 0.012 ng/mL
--- NOTE | 2020-03-20 09:36 | RADIOLOGY REPORT (SQ) ---
EXAM DESCRIPTION: CHEST SINGLE VIEW IMAGES COMPLETED DATE/TIME: 03/20/2020 9:27 am REASON FOR STUDY: chest pain COMPARISON: PA and lateral views of the chest from 10/19/2018. EXAM PARAMETERS: NUMBER OF VIEWS: One view. TECHNIQUE: An AP view of the chest was obtained. RADIATION DOSE: NA LIMITATIONS: None. FINDINGS: LUNGS AND PLEURA: No consolidation, pleural effusion or pneumothorax. MEDIASTINUM AND HILAR STRUCTURES: No mediastinal or hilar contour abnormality. HEART AND VASCULAR STRUCTURES: The cardiac silhouette and pulmonary vasculature are within normal romano its. BONES: No acute findings. HARDWARE: None in the chest. OTHER: No other finding. IMPRESSION: No acute cardiopulmonary process. TECHNICAL DOCUMENTATION: JOB ID: [id number] 2010 [employer]- All Rights Reserved Reading location - IP/workstation name: [email or web address]
[2020-03-20] MEDS ORDERED: MORPHINE SULFATE 10 MG/ML INJ IV ONE (11:44)
[2020-03-20 13:52] VITALS: BP 118/69
--- NOTE | 2020-03-20 16:35 | EKG REPORT ---
SEVERITY:- NORMAL ECG - SINUS RHYTHM NON-SPECIFIC T WAVE ABNORMALITY : Confirmed by: Wade Colon MD 20-Mar-2020 16:34:37
== END 2020-03-20 13:52 | disposition home or self-care (01) ==
LOC: ER 08:23
DX: R07.89 Other chest pain (principal); I10 Essential (primary) hypertension; F17.200 Nicotine dependence, unspecified, uncomplicated; Z88.6 Allergy status to analgesic agent; Z88.5 Allergy status to narcotic agent; Z88.0 Allergy status to penicillin; Z82.49 Family history of ischemic heart disease and other diseases of the circulatory system
CPT/HCPCS: 93005; 99285; 96374; 36415; 82553; 82550; 85025; 81025; 80053; 81001; 84484; 71045; 93010; J2270